=== PATIENT | female | born 1990 | race African-American/Black ===

== ENCOUNTER 2017-12-18 13:49 | Emergency (ER) | payer OTHER ==
[2017-12-18 16:02] LABS: Urine Bacteria >50 /HPF (<20); Urine Culture Reflex Order REFLEXED; Urine RBC 20-50 /HPF (NONE SEEN)
[2017-12-18 16:06] LABS: Urine Specific Gravity 1.025 (1.005-1.030)
[2017-12-18 16:06] LABS: Urine Blood 2+ (NEG); Urine Glucose NEGATIVE (NEG); Urine Protein 3+ (NEG); Urine Specific Gravity 1.025 (1.005-1.030); Urine pH 7.5 (5.0-7.0)
[2017-12-18] MEDS ORDERED: PROMETHAZINE 25 MG/ML VIAL ONE (16:06)
[2017-12-18] MEDS ORDERED: NA CHLORIDE 0.9% 1,000 ML ONE (16:07)
[2017-12-18] MEDS ORDERED: MORPHINE 4 MG/ML SYR ONE (16:07)
[2017-12-18 16:24] LABS: Absolute Lymphocytes (CBC) 2.1 K/uL (0.7-4.9); Absolute Monocytes 0.5 K/uL (0.1-1.3); Absolute Neutrophil 7.4 K/uL (1.8-8.0); Basophils % 0.5 % (0-1.3); Eosinophils % 2.9 % (0-4.4); Lymphocytes % 20.6 % (15.3-44.8); MCH 26.3 pg (27.0-35.0); MCV 80.6 fL (80-100); MPV 9.2 fL (7.6-11.3); Monocytes % 4.7 % (3.3-12.3); RBC Red Blood Cell Count 5.21 M/uL (3.86-4.86)
[2017-12-18 16:35] LABS: Glomerular Filtration Rate > 60 mL/min (>60)
[2017-12-18 16:37] LABS: Bicarbonate 27 mEq/L (21-31); Glucose Level 87 mg/dL (65-120); Lipase 17 U/L (22-51); Potassium 4.2 mEq/L (3.6-5.0); Sodium Level 138 mEq/L (135-145)
[2017-12-18 16:43] LABS: ALT/SGPT 14 IU/L (10-60); AST/SGOT 16 IU/L (10-42); Albumin 4.3 g/dL (3.2-5.5); Alkaline Phosphatase 54 IU/L (42-121); Amylase Level 50 U/L (28-100); BUN Blood Urea Nitrogen 14 mg/dL (6-20); Bilirubin Direct 0.1 mg/dL (0-0.2); Bilirubin Total 0.7 mg/dL (0.3-1.2); Glomerular Filtration Rate > 90 mL/min (=/>90); Protein, Total 8.1 g/dL (6.0-8.3)
--- NOTE | 2017-12-18 17:09 | EDPHYS ---
Physician Documentation [facility] Name: Haleigh Pérez Age: 27 yrs Sex: Female : 1990 Arrival Date: 12/18/2017 Time: 13:49 Bed 28 Private MD: ED Physician Layo Wallace HPI: 12/18 15:23 This 27 yrs old Black Female presents to ER via Ambulatory with complaints of Back Pain.cp 15:23 The patient presents with pain that is acute, with no known mechanism of injury. The cp symptoms are located in the left mid back. Onset: The symptoms/episode began/occurred 3 day(s) ago. [employer]: 14:07 LMP N/A - Hysterectomy aj Historical: - Allergies: 14:06 Zofran; aj 14:06 Tylenol; aj 14:06 Motrin; aj 14:06 Toradol; aj - Home Meds: 14:06 Lovenox 40 mg/0.4 mL Sub-Q syrg twice a day [Active]; Cipro Oral [Active]; Keflex Oral aj [Active]; Macrobid Oral [Active]; - PMHx: 14:06 Kidney stones; aj - PSHx: 14:06 nephrostomy; aj - Immunization history:: Adult Immunizations up to date. - Social history:: Smoking status: Patient uses tobacco products, smokes one-half pack cigarettes per day. ROS: 15:30 Constitutional: Negative for body aches, chills, fever, poor PO intake. cp 15:30 Eyes: Negative for injury, pain, redness, and discharge. cp 15:30 ENT: Negative for drainage from ear(s), ear pain, sore throat, difficulty swallowing, difficulty handling secretions. 15:30 Cardiovascular: Negative for chest pain, edema, palpitations. 15:30 Respiratory: Negative for cough, shortness of breath, wheezing. 15:30 Abdomen/GI: Negative for abdominal pain, vomiting, diarrhea, constipation, black/tarry stool, rectal bleeding. 15:30 Back: Positive for flank pain, on the left. 15:30 Skin: Negative for cellulitis, rash. 15:30 All other systems are negative. Exam: 15:35 Constitutional: The patient appears in no acute distress, alert, awake, cp non-diaphoretic, non-toxic, well developed, well nourished. 15:35 Head/Face: Normocephalic, atraumatic. cp 15:35 Eyes: Periorbital structures: appear normal, Conjunctiva: normal, no exudate, no injection, Sclera: no appreciated abnormality, Lids and lashes: appear normal, bilaterally. 15:35 ENT: External ear(s): are unremarkable, Nose: is normal, Mouth: Lips: moist, Oral mucosa: pink and intact, moist, Posterior pharynx: is normal, airway is patent, no erythema, no exudate. 15:35 Neck: ROM/movement: is normal, is supple, without pain, no range of motions limitations, no meningismus, no nuchal rigidity. 15:35 Chest/axilla: Inspection: normal, Palpation: is normal, no crepitus, no tenderness. 15:35 Cardiovascular: Rate: normal, Rhythm: regular. 15:35 Respiratory: the patient does not display signs of respiratory distress, Respirations: normal, no use of accessory muscles, no retractions, no splinting, no tachypnea, labored breathing, is not present, Breath sounds: are clear throughout, no decreased breath sounds, no stridor, no wheezing. 15:35 Abdomen/GI: Inspection: abdomen appears normal, Bowel sounds: active, all quadrants, Palpation: abdomen is soft and non-tender, in all quadrants, rebound tenderness, is not appreciated, voluntary guarding, is not appreciated, involuntary guarding, is not appreciated. 15:35 Back: CVA tenderness, is noted on the left, noted nephrostomy tube in place. 15:35 Skin: cellulitis, is not appreciated, no rash present. 15:35 Neuro: Orientation: to person, place \T\ time. Mentation: is normal, Motor: moves all fours, strength is normal, Sensation: no obvious gross deficits, Gait: is steady, at a normal pace, without difficulty. Vital Signs: 14:07 BP 126 / 103; Pulse 80; Resp 17; Temp 97.4; Pulse Ox 96% on R/A; Weight 81.65 kg; aj Height 5 ft. 6 in. (167.64 cm); Pain 7/10; 16:30 BP 120 / 68; Pulse 69; Resp 16; Pulse Ox 100% on R/A; rk2 18:00 BP 118 / 92; Pulse 79; Resp 16; Pulse Ox 99% on R/A; rk2 14:07 Body Mass Index 29.05 (81.65 kg, 167.64 cm) aj MDM: 15:17 Patient medically screened. cp 16:57 Physician consultation: Cuca Kenny MD was called at 16:55, was contacted at 16:55, cp regarding patient's condition, UA results. Reports UA results WNL for patient with nephrostomy tube. Patient WBCs WNL, afebrile, nontoxic appearing can be seen in clinic with urologist who manages nephrostomy tubes. 17:07 Data reviewed: vital signs, nurses notes, lab test result(s), and as a result, I will cp discharge patient. 12/18 15:22 Order name: Urine Microscopic Only; Complete Time: 16:16 12/18 16:16 Interpretation: Normal except: UWBC TNTC; URBC 20-50; UBACT >50. 12/18 15:40 Order name: Amylase, Serum; Complete Time: 16:46 12/18 15:40 Order name: Basic Metabolic Panel; Complete Time: 16:46 12/18 15:40 Order name: CBC with Diff; Complete Time: 16:41 12/18 16:41 Interpretation: Normal except: RBC 5.21; MCH 26.3. 12/18 15:40 Order name: Creatinine for Radiology; Complete Time: 16:41 12/18 16:41 Interpretation: Reviewed. 12/18 15:40 Order name: Hepatic Function; Complete Time: 16:46 12/18 15:40 Order name: Lipase; Complete Time: 16:46 12/18 16:42 Interpretation: LIP 17; Reviewed. 12/18 15:42 Order name: Urine Dipstick--Ancillary (enter results); Complete Time: 16:16 12/18 16:16 Interpretation: Normal except: UBLD 2+; UPH 7.5; UPROT 3+; UESTR 3+. 12/18 15:48 Order name: Urine --Ancillary (enter results); Complete Time: 16:16 12/18 16:04 Order name: Urine Culture EDIN 12/18 15:22 Order name: Urine Dipstick-Ancillary (obtain specimen); Complete Time: 15:40 12/18 15:22 Order name: Urine Test (obtain specimen); Complete Time: 15:40 cp 12/18 15:40 Order name: IV Saline Lock; Complete Time: 16:19 cp 12/18 15:40 Order name: Labs collected and sent; Complete Time: 16:20 cp Administered Medications: 16:21 Drug: Phenergan 25 mg Route: IVP; Site: right forearm; rk2 17:04 Follow up: Response: No adverse reaction; Nausea is decreased rk2 16:22 Drug: NS 0.9% 1000 ml Route: IV; Rate: 1 bolus; Site: right forearm; rk2 17:10 Follow up: Response: No adverse reaction; IV Status: Completed infusion rk2 16:22 Drug: morphine 4 mg Route: IVP; Site: right forearm; rk2 17:05 Follow up: Response: No adverse reaction; Pain is decreased rk2 17:15 Drug: Benadryl 25 mg Route: IVP; Site: right forearm; rk2 18:20 Follow up: Response: No adverse reaction rk2 Disposition: 12/18/17 17:08 Discharged to Home. Impression: Low back pain - Left. - Condition is Stable. - Discharge Instructions: Back Pain, Adult, [employer]. - Prescriptions for Cyclobenzaprine 10 mg Oral Tablet - take 1 tablet by ORAL route every 8 hours As needed no driving while taking medication; 20 tablet. - Medication Reconciliation Form, Thank You Letter, Antibiotic Education, Prescription Opioid Use form. - Follow up: Private Physician; When: Urologist for management of nephrostomy tube; Reason: Recheck today's complaints. - Problem is an ongoing problem. - Symptoms have improved. Addendum: 12/20/2017 06:19 Co-signature as Attending Physician, Layo Wallace MD. g s Signatures: Dispatcher [employer] Coreen Flores RN RN Maurisio Novoa PA PA cp Starr, Gregory, MD MD Merlyn Jeter RN RN rk2 Corrections: (The following items were deleted from the chart) 12/18 16:22 15:41 UA MICROSCOPIC+U.LAB.BRZ ordered. EDMS EDMS
--- NOTE | 2017-12-18 17:09 | ER ---
Nurse's Notes [facility] Name: Haleigh Pérez Age: 27 yrs Sex: Female : 1990 Arrival Date: 12/18/2017 Time: 13:49 Bed 28 Private MD: Diagnosis: Low back pain-Left Presentation: 12/18 14:04 Presenting complaint: Patient states: Reports leaking from nephrostomy after connection aj piece broke today. Transition of care: patient was not received from another setting of care. Onset of symptoms was December 18, 2017. Care prior to arrival: None. 14:04 Method Of Arrival: Ambulatory aj 14:04 Acuity: KASEY 3 aj Triage Assessment: 14:06 General: Appears in no apparent distress. comfortable, Behavior is calm, cooperative, aj appropriate for age. Pain: Complains of pain in posterior aspect of left lateral abdomen and anterior aspect of left lateral abdomen Pain currently is 7 out of 10 on a pain scale. Neuro: Level of Consciousness is awake, alert, obeys commands, Oriented to person, place, time, situation. Respiratory: Airway is patent Respiratory effort is even, unlabored, Respiratory pattern is regular, symmetrical. : nephrostomy. Musculoskeletal: Circulation, motion, and sensation intact. 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 - Social history:: Smoking status: Patient uses tobacco products, smokes one-half pack cigarettes per day. Screenin:07 Abuse screen: Denies threats or abuse. Nutritional screening: No deficits noted. rk2 Tuberculosis screening: No symptoms or risk factors identified. Fall Risk None identified. Assessment: 15:08 General: Appears in no apparent distress. well developed, well nourished, Behavior is rk2 calm, cooperative. Pain: Complains of pain in Left flank pain on palpation. Neuro: Level of Consciousness is alert, obeys commands, Oriented to person, place, time, situation. Respiratory: Airway is patent Respiratory effort is even, unlabored, Respiratory pattern is regular, symmetrical. GI: No signs and/or symptoms were reported involving the gastrointestinal system. EENT: No deficits noted. Derm: Skin is pink, warm \T\ dry. Musculoskeletal:. 16:10 Reassessment: Pt. resting in room \T\ this time... appears to be in no obvious distress. rk2 Given another warm blanket. No other needs voiced \T\ this time. 16:59 Reassessment: Replaced stop- cock on nephrostomy bag that was broke and reattached bag. rk2 17:27 Reassessment: Pt. resting in room, waiting for ride due to pt. receiving narcotics. rk2 18:50 Reassessment: Pt. being picked up by employer, ambulated pt. out. rk2 Vital Signs: 14:07 BP 126 / 103; Pulse 80; Resp 17; Temp 97.4; Pulse Ox 96% on R/A; Weight 81.65 kg; aj Height 5 ft. 6 in. (167.64 cm); Pain 7/10; 16:30 BP 120 / 68; Pulse 69; Resp 16; Pulse Ox 100% on R/A; rk2 18:00 BP 118 / 92; Pulse 79; Resp 16; Pulse Ox 99% on R/A; rk2 14:07 Body Mass Index 29.05 (81.65 kg, 167.64 cm) ED Course: 13:49 Patient arrived in ED. as 14:05 Triage completed. aj 14:07 Arm band placed on right wrist. Patient placed in waiting room, Patient notified of wait time. 14:55 Merlyn Jeter, RN is Primary Nurse. rk2 15:07 Patient has correct armband on for positive identification. Bed in low position. Call rk2 light in reach. 15:16 Maurisio Magallanes PA is PHCP. cp 15:16 Layo Wallace MD is Attending Physician. cp 15:41 Urine Microscopic Only Sent. rk2 16:20 Amylase, Serum Sent. ag 16:20 Basic Metabolic Panel Sent. ag 16:20 CBC with Diff Sent. ag 16:20 Creatinine for Radiology Sent. ag 16:20 Hepatic Function Sent. ag 16:20 Lipase Sent. ag 16:21 Inserted saline lock: 22 gauge in right forearm, using aseptic technique. Blood ag collected. 16:24 Amylase, Serum Sent. ag 16:24 Basic Metabolic Panel Sent. ag 16:24 CBC with Diff Sent. ag 16:25 Creatinine for Radiology Sent. ag 16:25 Hepatic Function Sent. ag 16:25 Lipase Sent. ag 17:05 Urine Culture Sent. rk2 18:49 No provider procedures requiring assistance completed. IV discontinued. rk2 Administered Medications: 16:21 Drug: Phenergan 25 mg Route: IVP; Site: right forearm; rk2 17:04 Follow up: Response: No adverse reaction; Nausea is decreased rk2 16:22 Drug: NS 0.9% 1000 ml Route: IV; Rate: 1 bolus; Site: right forearm; rk2 17:10 Follow up: Response: No adverse reaction; IV Status: Completed infusion rk2 16:22 Drug: morphine 4 mg Route: IVP; Site: right forearm; rk2 17:05 Follow up: Response: No adverse reaction; Pain is decreased rk2 17:15 Drug: Benadryl 25 mg Route: IVP; Site: right forearm; rk2 18:20 Follow up: Response: No adverse reaction rk2 Outcome: 17:08 Discharge ordered by . alex 18:49 Discharged to home ambulatory. rk2 18:49 Condition: good 18:49 Discharge instructions given to patient, Prescriptions given X 1. 19:04 Patient left the ED. rk2 Addendum: 12/22/2017 17:10 Addendum: Culture Results: Positive urine culture. Phone call Attempt #1 No answer. s s Signatures: Coreen Edge RN Roopa Feliciano Shelby, RN RN ss Gallardo, Ana ag Page, Corey, PA PA cp Kidder, Rhonda, RN RN rk2 Corrections: (The following items were deleted from the chart) 12/18 14:11 14:04 Acuity: KASEY 5 aj kraig 16:22 16:20 UA MICROSCOPIC+U.LAB.BRZ drawn and sent. ag EDMS 19:04 18:50 Reassessment: Pt. being picked up by employer rk2 rk2
[2017-12-18] MEDS ORDERED: DIPHENHYDRAMINE 50 MG/ML VIAL ONE (17:32)
== END 2017-12-18 19:04 | disposition home or self-care (01) ==
LOC: ER 13:49
DX: M54.5 Low back pain (principal); F17.210 Nicotine dependence, cigarettes, uncomplicated; Z88.6 Allergy status to analgesic agent; Z88.5 Allergy status to narcotic agent; Z88.8 Allergy status to other drugs, medicaments and biological substances
CPT/HCPCS: 36415; 80048; 80076; 81003; 81015; 81025; 82150; 83690; 85025; 87077; 87086; 87088; 87186; 96361; 96374; 96375; 99284; J2550; J7030